=== PATIENT | female | born 2000 | race Caucasian/White ===

== ENCOUNTER 2024-04-25 11:51 | Outpatient (CLI) | payer OTHER, SELFPAY ==
[2024-04-25 12:24] VITALS: BMI 46.0
[2024-04-25 12:38] VITALS: BP 109/76; PULSE 66; RESP 18; O2SAT 99
[2024-04-25 12:54] LABS: Urine Pregnancy, HCG Qual. Negative (Negative)
[2024-04-25 12:58] LABS: Chloride 108 mmol/L (98-107); Sodium 138 mmol/L (136-145)
[2024-04-25 13:01] LABS: Blood Urea Nitrogen 10 mg/dl (7-17); Creatinine Clearance Estimated 93 mL/min (50-200); Estimated Glomerular Filt Rate 87 ml/min (>60); GFR (African American) 106 ML/MIN (>60)
[2024-04-25 13:02] LABS: Calcium 8.7 mg/dl (8.4-10.2); Carbon Dioxide 25 mmol/L (22.0-30.0); Glucose 93 mg/dl (74-100)
[2024-04-25] MEDS: METOPROLOL TARTRATE 25MG TABLET *IVABRADINE+METOPROLOL REGIMINE 25 MG PO (13:03)
[2024-04-25 13:32] VITALS: BP 130/77; PULSE 59; RESP 18; O2SAT 99
[2024-04-25] MEDS: NITROGLYCERIN 0.4MG SL TABLET 0.4 MG SL (13:32)
[2024-04-25 13:35] VITALS: BP 98/61; PULSE 64; RESP 18; O2SAT 98
[2024-04-25] MEDS: 0.9 % SODIUM CHLORIDE 50 ML VIAL IV (13:38)
[2024-04-25] MEDS: IOPAMIDOL-370 (76%);100ML BOTTLE 85 ML IV (13:38)
[2024-04-25] MEDS: SODIUM CHLORIDE 0.9% 10ML SYR (RAD ONLY) 10 ML IV (13:38)
[2024-04-25 13:40] VITALS: BP 126/65; PULSE 69; RESP 18; O2SAT 98
[2024-04-25 13:47] VITALS: BP 115/72; PULSE 56; RESP 18; O2SAT 96
== END 2024-04-25 13:47 | disposition home or self-care (01) ==
PROVIDERS: PCP Nurse Practitioner Family; Visit Provider Registered Nurse
DX: I20.9 Angina pectoris, unspecified (principal)
CPT/HCPCS: 75574; 80048; 81025; Q9967